=== PATIENT | female | born 1950 | race Caucasian/White ===

== ENCOUNTER → 2016-12-19 | Outpatient (CLI) | payer MEDICARE, OTHER ==
[~2016-12-19] MED LIST: AMLO10TA4 PO; AMLO10TA82 PO; ASP81TEC PO; HYDR1TAB8 OP; NIAC-4 PO; OMEG1CAP74 PO; QUIN40TA PO; SIMV40TA2 PO
--- NOTE | 2016-12-19 16:19 | Diagnostic Imaging Report ---
CLINICAL INDICATION: Patient with chronic kidney disease stage 3. EXAM: Ultrasound of both kidneys. COMPARISON: None. FINDINGS: There is a 1.5 cm x 1.4 cm x 1.1 cm exophytic cyst involving the mid pole of the right kidney. Otherwise, both kidneys are normal in size, shape, echogenicity and cortical thickness without hydronephrosis, stones, or other focal lesions with the right and left kidneys measuring 9.5 cm and 10.1 cm in their craniocaudal dimensions, respectively. The bladder is fluid distended with no significant abnormality seen. Left ureteral jet is seen. The right ureteral jet is not visualized. IMPRESSION: 1. Unremarkable bilateral renal ultrasound. Dictated by: Dictated on workstation # [id number]
== END ==
LOC: RAD 14:56
PROVIDERS: ATTEND Family Medicine
DX: N18.3 Chronic kidney disease, stage 3 (moderate) (principal)
CPT/HCPCS: 76770

== ENCOUNTER 2018-03-25 19:43 | Outpatient (CLI) | payer MEDICARE, OTHER | END 2018-03-26 06:20 | disposition home or self-care (01) | LOC: SLEEP 19:43 | PROVIDERS: ATTEND Family Medicine | DX: G47.33 Obstructive sleep apnea (adult) (pediatric) (principal) | CPT/HCPCS: 95811 ==

== ENCOUNTER → 2022-07-04 | Outpatient (CLI) | payer MEDICARE ==
--- NOTE | 2022-07-04 16:58 | Diagnostic Imaging Report ---
PROCEDURE: US Thyroid. TECHNIQUE: Multiple real-time grayscale images were obtained of the thyroid in various projections. INDICATION: Fatigue. COMPARISON: None. FINDINGS: Right thyroid lobe: Size (cm): 3.9 x 2.5 x 2.4 Echotexture: Normal. Vascularity: Normal. Nodules: There is a solid isoechoic nodule in the right mid thyroid measuring 6 mm with peripheral rim calcification. Isthmus: Size (cm): 0.4 Nodules: None. Left thyroid lobe: Size (cm): 5.4 x 3.6 x 2.5 Echotexture: Normal. Vascularity: Normal. Nodules: There is a mostly solid isoechoic nodule in the left mid thyroid which is circumscribed and measures up to 2.4 cm. There are some internal macrocalcifications. In the inferior left thyroid, there is a 1.8 cm isoechoic solid nodule. IMPRESSION: 1. 2.4 cm nodule in the left thyroid lobe qualifies for FNA based on TI-RADS criteria. 2. Second nodule in the inferior left thyroid qualifies for ultrasound follow-up in one year. Dictated by: Dictated on workstation # [id number]
== END ==
LOC: RAD 15:45
PROVIDERS: ATTEND Otolaryngology Otolaryngology/Facial Plastic Surgery
DX: E04.2 Nontoxic multinodular goiter (principal)
CPT/HCPCS: 76536

== ENCOUNTER → 2022-07-18 | Outpatient (CLI) | payer MEDICARE ==
[~2022-07-18] VITALS: Ht 167.6 cm; Wt 104.5 kg
[~2022-07-18] MED LIST changes: +LIDOCAINE 1% INJ 30 ML (XYLOCAINE) VIAL INJ ONE
--- NOTE | 2022-07-18 16:30 | Diagnostic Imaging Report ---
INDICATION: Left thyroid nodule. Patient presents for ultrasound-guided fine-needle aspiration. Patient brought to the procedure and placed on table in the supine position. Ultrasound imaging of the left neck was performed to evaluate appropriate entry site. Left neck was then prepped and draped in usual sterile fashion. Small amount of 1% lidocaine was utilized for local anesthesia. A total of 4 passes were made into the dominant solid mass left lobe of thyroid utilizing 25-gauge needles and final aspiration technique. [place] were removed and hemostasis was obtained. Patient tolerated procedure well and left the department stable condition. IMPRESSION: Successful ultrasound guided fine needle aspiration of the dominant solid nodule left lobe of thyroid. Pathology results are currently pending. Dictated by: Dictated on workstation # [id number]
== END ==
LOC: RAD 14:45
PROVIDERS: ATTEND Otolaryngology Otolaryngology/Facial Plastic Surgery
DX: E04.1 Nontoxic single thyroid nodule (principal)

== ENCOUNTER → 2022-12-06 | Outpatient (CLI) | payer MEDICARE ==
[~2022-12-06] VITALS: Ht 175.3 cm; Wt 104.5 kg
[~2022-12-06] MED LIST changes: +LIDOCAINE 1% INJ 10 ML VIAL INJ ONE; -LIDOCAINE 1% INJ 30 ML (XYLOCAINE) VIAL INJ ONE
--- NOTE | 2022-12-06 15:17 | Diagnostic Imaging Report ---
INDICATION: Left thyroid nodule. EXAMINATION: Patient presents for ultrasound-guided fine-needle aspiration. PROCEDURE: Patient was brought to the procedure room and placed on table in the supine position. Ultrasound imaging of the left neck was performed to evaluate appropriate entry site. Left neck was prepped and draped in the usual sterile fashion. A small amount of 1% lidocaine was utilized for local anesthesia. A total of four passes were made into the dominant solid nodule in left lobe of the thyroid utilizing 25-gauge needles and fine-needle aspiration technique. Hemostasis was obtained. Patient tolerated the procedure well and left the department in stable condition. IMPRESSION: Successful ultrasound-guided fine-needle aspiration of left lobe thyroid nodule. Dictated by: Dictated on workstation # [id number]
== END ==
LOC: RAD 13:47
PROVIDERS: ATTEND Family Medicine
DX: E04.1 Nontoxic single thyroid nodule (principal)
CPT/HCPCS: 76942